=== PATIENT | male | born 1970 | race Caucasian/White ===

== ENCOUNTER 2019-11-11 20:33 | Emergency (ER) | payer MEDICAID ==
[~2019-11-11] VITALS: Ht 167.6 cm; Wt 90.7 kg
[2019-11-11 20:35] VITALS: BP_SYST 124
[2019-11-11 22:37] VITALS: BP_SYST 130
== END 2019-11-11 22:37 | disposition home or self-care (01) ==
LOC: SED 20:33
DX: F10.10 Alcohol abuse, uncomplicated (principal); Y90.9 Presence of alcohol in blood, level not specified; V49.40XA Driver injured in collision with unspecified motor vehicles in traffic accident, initial encounter; Y93.89 Activity, other specified; Y92.89 Other specified places as the place of occurrence of the external cause; Y99.8 Other external cause status
CPT/HCPCS: 99283